=== PATIENT | male | born 1975 | race Two or more races ===

== ENCOUNTER 2023-08-25 04:24 | Emergency (ER) | payer BC, SELFPAY ==
[2023-08-25 04:26] VITALS: BP 124/83
--- NOTE | 2023-08-25 04:52 | ED.GENMED ---
History of Present Illness
<LUIS CARLOS Scott - Last Filed: 08/25/23 06:49>
General
Chief Complaint: Musculo-Skeletal Complaint
Source: patient
Exam Limitations: none
Time Seen by Provider: 08/25/23 04:40
Nursing documentation reviewed up to this point in time: agreed with
Travel History
Have you had any contact with someone who has COVID-19?: No
Do you have any symptoms of coronavirus? Fever > 100 degrees, chills, cough, shortness of breath, sore throat, loss of taste or smell, muscle aches, or headache?: No
History of Present Illness
History of Present Illness:
patient is a 48 y/o male presenting with left shoulder pain. Patient states he was lifting a large water softener when he believed he hurt his shoulder. Patient states he feels pain in the middle of his scapula that radiates down his arm causing
numbness in his second and third digit of his left arm. Patient states he took Tylenol and ibuprofen for this pain with no relief. Patient denies any previous injury to the shoulder. Patient denies N/V/D/C, fever, chills, SOB, LUA, CP. patient denies
any tobacco or alcohol in the last 48 hrs.
Past History
<LUIS CARLOS Scott - Last Filed: 08/25/23 06:49>
Past History
ED Past Medical History: None
ED Past Surgical History: Appendectomy
Social History
Tobacco: Non-smoker
Personal:
Living: with family
Review of Systems
<LUIS CARLOS Scott - Last Filed: 08/25/23 06:49>
Review of Systems
All Other Systems: Not applicable
Constitutional: Reports no symptoms
EENT: Reports no symptoms
Respiratory: Reports no symptoms
Cardiac: Reports no symptoms
ABD/GI: Reports no symptoms
: Reports no symptoms
Musculoskeletal: Reports muscle pain (left arm ) and neck pain
Skin: Reports no symptoms
Neurological: Reports numbness and other (tingling on left arm)
Endocrine: Reports no symptoms
Hematologic/Lymphatic: Reports no symptoms
Psychiatric: Reports no symptoms
Phy Exam
<LUIS CARLOS Scott - Last Filed: 08/25/23 06:49>
General Physical Exam
General Presentation: well appearing and no apparent distress
General Skin: warm and dry
General Habitus: normal
General Mental: alert
General Hydration: appears well hydrated
ENT Exam
ENT Exam: EOMI, pharynx normal, neck supple and normocephalic
Eye Exam
Eye Exam: PERRL, cornea clear and conjunctiva normal
Cardiovascular Exam
Cardiovascular Exam: regular rate/rhythm, no edema, no murmur and normal peripheral pulses
Pulmonary Exam
Pulmonary Exam: lungs clear, no respiratory distress, no rales, no crackles, no rhonchi, no stridor, no wheezing and no cough
Gastrointestinal Exam
Gastrointestinal Exam: normal bowel sounds, non tender, soft, no organomegaly, no pulsatile mass and non distended
Neurological Exam
Neurological Exam: alert, oriented x3, no motor deficits and speech normal
Musculoskeletal Exam
Musculoskeletal Exam: full ROM, neck pain and other (pain down arm and shoulder with neck extension and flexion: relief with rotation of head to left side )
Skin Exam
Skin Exam: normal color, warm/dry, no rash and no petechia
Psychiatric Exam
Psychiatric Exam: normal mood/affect
Course
<LUIS CARLOS Scott - Last Filed: 08/25/23 06:49>
Orders/Labs/Results
Orders:
Orders
08/25/23 04:29
ECG [Electrocardiogram (*1)] Urgent
Reason for Study: Fatigue / Weakness
EKG- Treatment ONCE
08/25/23 04:57
Ceftriaxone Sodium [Rocephin] 1,000 mg IM NOW STA
08/25/23 05:27
CR Shoulder - Left Min 2 View* Urgent
Comment:
Reason For Exam: pain
08/25/23 07:13
Sling Left-Treatment ONCE
Dexamethasone Pf [Decadron] 10 mg PO NOW STA
Ketorolac [Toradol] 30 mg IM NOW STA
Vital Signs
Initial and Last Documented VS:
Initial Vital Signs
Temp Pulse Resp BP Pulse Ox
98.0 F 74 19 124/83 100
08/25/23 04:26 08/25/23 04:26 08/25/23 04:26 08/25/23 04:26 08/25/23 04:26
Last Documented Vital Signs
Temp Pulse Resp BP Pulse Ox
98.0 F 74 19 124/83 100
08/25/23 04:26 08/25/23 04:26 08/25/23 04:26 08/25/23 04:26 08/25/23 04:26
<Charlie Gonzalez, DO - Last Filed: 08/25/23 07:20>
Orders/Labs/Results
Orders:
Orders
08/25/23 04:29
ECG [Electrocardiogram (*1)] Urgent
Reason for Study: Fatigue / Weakness
EKG- Treatment ONCE
08/25/23 04:57
Ceftriaxone Sodium [Rocephin] 1,000 mg IM NOW STA
08/25/23 05:27
CR Shoulder - Left Min 2 View* Urgent
Comment:
Reason For Exam: pain
08/25/23 07:13
Sling Left-Treatment ONCE
Dexamethasone Pf [Decadron] 10 mg PO NOW STA
Ketorolac [Toradol] 30 mg IM NOW STA
Vital Signs
Initial and Last Documented VS:
Initial Vital Signs
Temp Pulse Resp BP Pulse Ox
98.0 F 74 19 124/83 100
08/25/23 04:26 08/25/23 04:26 08/25/23 04:26 08/25/23 04:26 08/25/23 04:26
Last Documented Vital Signs
Temp Pulse Resp BP Pulse Ox
98.0 F 74 19 124/83 100
08/25/23 04:26 08/25/23 04:26 08/25/23 04:26 08/25/23 04:26 08/25/23 04:26
<LUIS CARLOS Scott - Last Filed: 08/25/23 06:49>
MDM/Problems Addressed
Differential Diagnosis Includes:
cervical disc herniation
muscle strain
MDM/Problems Addressed:
left shoulder pain
<LUIS CARLOS Scott - Last Filed: 08/25/23 06:49>
*Critical Care Note
Total Time (30-74mins, 75-104mins- exclusive of procedures): Not Applicable
ED Attending Note
<LUIS CARLOS Scott - Last Filed: 08/25/23 06:49>
-
Portions of this chart may have been created with voice recognition software.� Occasional wrong word or��sound alike� substitutions may have occurred due to the inherent limitations of voice recognition software.
<Charlie Gonzalez DO - Last Filed: 08/25/23 07:20>
ED Attending Note
Patient seen and examined by attending physician: Yes
I performed the substantive portion of visit, reviewed & personally made and approve the management plan that is documented in note by myself or DOMONIQUE.: Yes
ED Attending Note:
Pleasant 48-year-old male who presents with left shoulder pain. Patient was lifting a large water softener on Wednesday. He 'bear hugged the unit 'causing left shoulder pain immediately. He states that the pain did not improve so he came to the
emergency department for evaluation. He did try Tylenol and ibuprofen without much relief. Denies any chest pain or shortness of breath. Patient was seen in conjunction with the PA student. I have reviewed and agree with the history and
treatment plan presented. On my independent physical exam, patient is awake, alert, and oriented x3 ambulating around the room. Patient does have paraspinal tenderness to palpation in the musculature to the left of his neck. Limited range of
motion secondary to pain. Good distal pulses in the left arm. No obvious deformity noted. X-rays appears normal. Plan is steroid and muscle relaxant with Voltaren. Patient to follow-up with orthopedics as needed.
Discharge Plan
Departure
Patient Disposition: Home (Routine Discharge)
Date of Disposition: 08/25/23
Time of Disposition: 07:17
Patient with high blood pressure during this ER visit?: Yes
Condition: Good
Discharge Problem:
Acute shoulder pain
Instructions: Muscle and Bone Pain (DC), How to Use a Shoulder Sling, BLOOD PRESSURE
Prescriptions:
New
diclofenac sodium 75 mg tablet,delayed release (DR/EC)
75 mg PO BID Qty: 10 0RF
cyclobenzaprine 10 mg tablet
10 mg PO Q12H Qty: 10 0RF
[facility] - Call in 1-3 days for appt
NONE,* [Family Provider] -
Activity Restrictions/Additional Instructions:
It was a pleasure meeting you and taking part in your care. We hope for your continued healing and wellness.
Please read discharge instructions in their entirety. However, they are for general education and may not describe your exact diagnosis at discharge. Information on your ER visit and medical conditions were discussed with you along with appropriate
follow up information...
If indicated, please take your medications as instructed and indicated on discharge paperwork.
Please schedule a follow up appointment as directed. Call to schedule an appointment
Please return to the emergency department with ANY change in, persisting, or worsening of symptoms. If any of your symptoms do not improve, or persist, or become more severe within 6-12 hours, please return to the emergency department for further
care.
Please return to the emergency department if you develop a headache, neck pain/stiffness, fever greater than 100.4F, chest pain, shortness of breath, persistent nausea, vomiting, slurred speech, difficulty walking, numbness/tingling, weakness, signs
of infection or any other symptoms that are worrisome to you.
If you have any questions or concerns please do not hesitate to call the Hospital at or E-mail me directly at [email or web address]
Interventions
Interventions:
*Risk Screen - Suicide Last Done: 08/25/23 04:26
*General Assessment Last Done: 08/25/23 04:26
*Neglect/Abuse Screening Last Done: 08/25/23 04:26
*ED COVID-19 Vaccine History Last Done: 08/25/23 04:26
ED-Musculoskeletal Assessment Last Done: 08/25/23 06:52
Discharge Date and Time
Print Language: [id number]
[2023-08-25] MEDS: TORADOL 30 MG IM (07:21)
[2023-08-25] MEDS: DECADRON 10 MG PO (07:22)
[2023-08-25 07:40] VITALS: BP 132/73
== END 2023-08-25 07:53 | disposition home or self-care (01) ==
LOC: EMR 04:24
PROVIDERS: EMERGENCY PHYSICIAN Student in an Organized Health Care Education/Training Program
DX: M25.512 Pain in left shoulder (principal); R03.0 Elevated blood-pressure reading, without diagnosis of hypertension
CPT/HCPCS: 99284; 96372; 73030; 93005